=== PATIENT | male | born 1975 | race African-American/Black ===

== ENCOUNTER 2020-10-08 14:38 | Emergency (ER) | payer MEDICAID, OTHER ==
[~2020-10-08] VITALS: Ht 167.6 cm; Wt 65.8 kg
[2020-10-08 14:40] VITALS: BP 153/84
[2020-10-08] MEDS ORDERED: IBUPROFEN 800 MG TAB PO ONE (15:15)
== END 2020-10-08 15:34 | disposition home or self-care (01) ==
LOC: ER 14:40
DX: K04.7 Periapical abscess without sinus (principal); F17.210 Nicotine dependence, cigarettes, uncomplicated